=== PATIENT | male | born 1970 | race Caucasian/White ===

== ENCOUNTER 2023-11-09 17:25 | Observation (INO) ==
--- NOTE | 2023-11-09 18:19 | Emergency Department Note ---
Impression & Plan Acute pancreatitis ADMIT ED Provider Note HPI: History obtained from patient. The patient is a 52-year-old gentleman with history of an esophageal dysmotility disorder requiring an esophagectomy to be performed in 2014 at [facility], presents the emergency department with a chief complaint of mid abdominal pain. Patient states that over the past 2 weeks he has had intermittent episodes of sharp abdominal pain in his mid abdomen and upper abdomen. Patient states the episodes have been transient in nature. 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 Patient states this lasted about an hour and then seem to let up but he still does have pain on arrival here to the ED. Patient states that this pain was worse than the episodes he had had over the past 2 weeks. On arrival here to the ED the patient is hypertensive but otherwise hemodynamically stable, he appears to be in no acute distress on initial assessment. Patient declines analgesia. ROS: - Per HPI Differential Diagnosis: Gastritis, peptic ulcer disease, acute pancreatitis, acute cholecystitis, choledocholithiasis, viral gastroenteritis, abdominal aortic dissection, amongst other potential pathologies. *Outpatient medications and allergy history reviewed. PE: General: Alert HEENT: Normocephalic, trachea midline Eyes: Extraocular eye movement is intact, no scleral erythema Pulmonary: Clear to auscultation bilaterally, no wheezing Cardio: Regular rate and rhythm GI: Abdomen is soft to palpation, there is tenderness over the epigastric area to palpation without guarding or rigidity : No suprapubic tenderness MSK: No evidence of trauma or malformation of the extremities, no edema Skin: No evidence of rash Neuro: Alert, no focal deficits Psychiatric: Cooperative INDEPENDENT INTERPRETATIONS: critical care nurse specialist: (As interpreted by myself): - An order was placed for continuous cardiac monitoring - Patient was noted to be in sinus rhythm with a rate of 70 Interventions provided in ED: -IV fluid bolus, IV morphine, IV Zofran Medical Decision Making: IV was established and lab work obtained, patient was placed on airflight attendants supervisor. Lab work shows no leukocytosis, hemoglobin is normal, platelet count is normal, CMP does not show any critical findings however there is mild bilirubin elevation at 1.2, AST is elevated at 109, ALT at 76, alk phos of 180. No evidence of acute kidney injury, lipase does return elevated at 7776. CT imaging of the abdomen pelvis shows evidence of acute pancreatitis. There is also cholelithiasis with mild pericholecystic edema thought to possibly be secondary to the inflammation from the pancreas per radiology report. Also mild thickening of the duodenum thought to be secondary to pancreatic inflammation. There is no common bile duct dilatation. On my reassessment the patient remains stable, he was in agreement at this time to analgesia and therefore was ordered IV morphine and IV Zofran as well as more IV fluids. Patient is in agreement for admission. He does admit to daily alcohol use, I think this is likely the source of his acute pancreatitis. Case was discussed with the on-call midlevel provider for the hospitalist service, Cj Maxwell PA-C, and the patient was placed for admission in stable condition. Further discussion was held with the hospitalist, Dr. Robins, he requested an MRCP be ordered and therefore this order was placed. I suspect acute pancreatitis secondary to alcohol use as opposed to obstructive pathology at this time given lack of any biliary ductal dilatation on CT imaging and evidence of pancreatic inflammation with elevated lipase. Consultants/Discussions held with other healthcare providers: -Hospitalist, Dr. Robins Disposition discussion held by myself with: -Patient Diagnosis: 1. Acute pancreatitis 2. Acute abdominal pain 3. Elevated lipase 4. Transaminitis, acute, mild, AST greater than ALT Disposition: ADMIT Tristen Ceballos, DO Emergency Medicine Past Med/Surg History Social History Smoking Status: Never smoker Feels Safe at Home: Yes Allergies Allergies Allergy/AdvReac Type Severity Reaction Status Date / Time house dust Allergy Intermediate ITCHY Verified 11/09/23 18:42 EYES, SNEEZING, CONGESTION pollen extracts Allergy Intermediate ITCHY Verified 11/09/23 18:42 EYES, SNEEZING, CONGESTION Home Meds Home Medications Medication Instructions Recorded Confirmed T-Hero Suppliment 1 dose PO DAILY 11/09/23 11/09/23 cetirizine 10 mg tablet (Zyrtec) 10 mg PO DAILY 11/09/23 11/09/23 esomeprazole magnesium 40 mg 40 mg PO DAILY 11/09/23 11/09/23 capsule,delayed release (Nexium) sertraline 50 mg tablet (Zoloft) 75 mg PO DAILY 11/09/23 11/09/23 tofacitinib 10 mg tablet (Xeljanz) 10 mg PO DAILY 11/09/23 11/09/23 Results & Data (ED) Vital Signs Vital Signs - 24 hr 11/09/23 17:32 11/09/23 18:07 11/09/23 18:09 Temperature 36.2 C L Temperature Source Temporal Artery Scan Pulse Rate 69 65 Pulse Rate [Apical] 59 L Pulse Rhythm [Apical] Regular Pulse Strength [Apical] Normal Respiratory Rate 19 18 Respiratory Effort / Characteristics Non-Labored Spontaneous Respiratory Depth Normal Normal Respiratory Pattern Regular Blood Pressure 182/121 H Blood Pressure [Right Arm] 188/119 H Blood Pressure Mean 141 Blood Pressure Mean [Right Arm] 142 Blood Pressure Position [Right Arm] Sitting Pulse Oximetry 100 100 Oxygen Delivery Method Room Air Room Air Sepsis Recent Fever Within 48 Hours No Sepsis New/Unexplained Change in Mental Status N/A Sepsis Action Taken by Nursing No Action Required Laboratory Data 11/09/23 18:11 11/09/23 18:11 Lab Results 11/09/23 Range/Units 18:11 WBC 7.20 (4.8-10.8) K/ul RBC 5.62 (4.70-6.10) M/uL Hgb 15.2 (14.0-18.0) g/dl Hct 47.5 (42.0-52.0) % MCV 84.5 (80.0-100.0) fL MCH 27.0 (25.0-34.0) pg MCHC 32.0 (32.0-36.0) g/dL RDW Std Deviation 39.4 (36.4-46.3) fL RDW Coeff of Camilo 12.8 (11.5-14.5) % Plt Count 271 (130-400) K/uL MPV 10.2 (9.4-12.4) fL Immature Gran % (Auto) 0.4 % Neut % (Auto) 63.1 % Lymph % (Auto) 23.8 % Ross % (Auto) 6.4 % Eos % (Auto) 5.6 % Baso % (Auto) 0.7 % Neut # (Auto) 4.55 (1.40-6.50) K/uL Lymph # (Auto) 1.71 (1.20-3.40) K/uL Ross # (Auto) 0.46 (0.11-0.59) K/uL Eos # (Auto) 0.40 (0.00-0.50) K/uL Baso # (Auto) 0.05 (0.00-0.20) K/uL Immature Gran # (Auto) 0.03 (0.01-0.20) K/uL Sodium 138 (136-145) mmol/L Potassium 3.9 (3.5-5.1) mmol/L Chloride 104 (98-107) mmol/L Carbon Dioxide 28 (21-32) mmol/L Anion Gap 6 (3-11) BUN 11 (6-23) mg/dl Creatinine 0.99 (0.6-1.4) mg/dl Est Cr Clr Drug Dosing 95.5 ml/min Est GFR ( Amer) 102.5 ml/min Est GFR (Non-Af Amer) 88.4 ml/min BUN/Creatinine Ratio 11.1 (10-20) Glucose 103 H (70-99(Fasting)) mg/dl Calcium 8.9 (8.6-10.3) mg/dl Total Bilirubin 1.2 H (0.2-1.0) mg/dl AST 109 H (13-39) U/L ALT 76 H (7-52) U/L Alkaline Phosphatase 180 H (34-104) U/L Total Protein 7.1 (6.0-8.3) gm/dl Albumin 4.2 (3.4-5.0) gm/dl Globulin 2.9 (2.5-4.0) gm/dl Albumin/Globulin Ratio 1.4 (0.9-2) Lipase 7776 H (11-82) U/L Administered Medications Discontinued Medications Sodium Chloride (Nss) 1,000 mls @ 999 mls/hr IV .Q1H1M ONE Stop: 11/09/23 19:17 Last Infusion: 11/09/23 19:46 Dose: Infused Documented By: Admin: 11/09/23 18:36 Dose: 999 mls/hr Documented By: LORNE Ioversol (Optiray 320 100ml) 93 ml IV ONCE ONE Stop: 11/09/23 19:18 Last Admin: 11/09/23 19:18 Dose: 93 ml Documented By: EDK Imaging Data Radiologist's Impression: Abdomen/Pelvis CT 11/09/23 18:[address] WITH IV CONTRAST CT DOSE: 1190.8 mGy.cm HISTORY: mid abd pain TECHNIQUE: Multiaxial CT images of the abdomen and pelvis were performed following the use of intravenous contrast. A dose lowering technique was utilized adhering to the principles of ALARA. COMPARISON STUDY: None. FINDINGS: There are scattered punctate calcified granulomas in the few linear scarlike densities the right lung base. No pneumoperitoneum. No pneumatosis. No acute fractures. Suture material within the stomach with suggestion of a gastric pull-up. This is only partially imaged on this study. The liver, spleen, adrenal glands, and right kidney are unremarkable. There is a punctate stone within the left kidney. No ureteral stones. No hydronephrosis. The main portal vein is patent. Normal caliber abdominal aorta. There is a left circumaortic renal vein. Mild calcified plaque within the abdominal aorta. No retroperitoneal or pelvic lymphadenopathy. No pelvic free fluid. The bladder is unremarkable. Colonic diverticulosis. No evidence for acute diverticulitis. No dilated loops of bowel to suggest an obstruction. Mild thickening within the duodenum is likely reactive. Normal appendix. Edema within the head and body of the pancreas with peripancreatic fat stranding/fluid. This is consistent with acute pancreatitis. No pancreatic necrosis or loculated peripancreatic fluid collections at this time. Normal caliber common bile duct. There are few punctate gallstones. There is minimal pericholecystic edema. This could be reactive. IMPRESSION: 1. Acute pancreatitis as described above. 2. Cholelithiasis. There is mild pericholecystic edema. This could be reactive to the acute pancreatitis. 3. Mild thickening of the duodenum which is also likely reactive to the acute pancreatitis. 4. Left-sided nephrolithiasis. No hydronephrosis. 5. Additional findings as described above. ACT 112: Negative or not required by law. Electronically signed by: Cj Coley M.D. 11/09/2023 7:46 PM Discharge Plan Visit Data Chief Complaint: Abdominal Pain Stated Complaint: SHARP UPPER ABD PAIN, RT ABD/FLANK PAIN ED Provider: Tristen Ceballos Discharge Problem: Acute pancreatitis Forms Stand Alone Forms: Raising [employer] Prescriptions Prescriptions: No Action cetirizine [Zyrtec] 10 mg Tablet 10 mg PO DAILY esomeprazole magnesium [Nexium] 40 mg Capsule,Delayed Release(Dr/Ec) 40 mg PO DAILY sertraline [Zoloft] 50 mg Tablet 75 mg PO DAILY Xeljanz 10 mg Tablet 10 mg PO DAILY T-Hero Suppliment 1 dose PO DAILY Referrals Referrals: PCP,NO [Primary Care Provider] - Discharge Problem: Acute pancreatitis Qualifiers: Pancreatitis type: unspecified pancreatitis type Acute pancreatitis complication: unspecified Qualified Code(s): K85.90 - Acute pancreatitis without necrosis or infection, unspecified
[2023-11-09 18:32] LABS: Basophils # (auto) 0.05 K/uL (0.00-0.20); Basophils % (auto) 0.7 %; Eosinophils % (auto) 5.6 %; Hematocrit (blood only) 47.5 % (42.0-52.0); Hemoglobin 15.2 g/dl (14.0-18.0); Immature Granulocytes # (auto) 0.03 K/uL (0.01-0.20); Immature Granulocytes % (auto) 0.4 %; Lymphocytes # (auto) 1.71 K/uL (1.20-3.40); Lymphocytes % (auto) 23.8 %; Mean Corpuscular Volume 84.5 fL (80.0-100.0); Mean Platelet Volume 10.2 fL (9.4-12.4); Monocytes # (auto) 0.46 K/uL (0.11-0.59); Monocytes % (auto) 6.4 %; Neutrophils # (auto) 4.55 K/uL (1.40-6.50); Neutrophils % (auto) 63.1 %; Platelet Count 271 K/uL (130-400); RDW Coefficient of Variation 12.8 % (11.5-14.5); RDW Standard Deviation 39.4 fL (36.4-46.3); Red Blood Count 5.62 M/uL (4.70-6.10)
[2023-11-09] MEDS: SODIUM CHLORIDE 0.9% 1,000 ML IV ONE ×2 (18:36→21:10)
[2023-11-09 18:50] LABS: BUN Creatinine Ratio 11.1 (10-20); Calcium 8.9 mg/dl (8.6-10.3); Creatinine Clr Calc Pharmacy 95.5 ml/min; Est GFR (African American) 102.5 ml/min; Est GFR (Non-African American) 88.4 ml/min; Potassium 3.9 mmol/L (3.5-5.1)
[2023-11-09 18:54] LABS: Albumin Level 4.2 gm/dl (3.4-5.0); Bilirubin,Total 1.2 mg/dl (0.2-1.0); Total Protein 7.1 gm/dl (6.0-8.3)
[2023-11-09 18:55] LABS: Albumin Globulin Ratio 1.4 (0.9-2); Globulin 2.9 gm/dl (2.5-4.0)
[2023-11-09] MEDS: OPTIRAY 320 100ml IV ONE (19:18)
--- NOTE | 2023-11-09 19:48 | CT Scan Report ---
ABDOMEN AND PELVIS CT WITH IV CONTRAST CT DOSE: 1190.8 mGy.cm HISTORY: mid abd pain TECHNIQUE: Multiaxial CT images of the abdomen and pelvis were performed following the use of intrave nous contrast. A dose lowering technique was utilized adhering to the principles of ALARA. COMPARISON STUDY: None. FINDINGS: There are scattered punctate calcified granulomas in the few linear scarlike densities the right lung base. No pneumoperitoneum. No pneumatosis. No acute fractures. Suture material within the stomach with suggestion of a gastric pull-up. This is only partially imaged on this study. The liver, spleen, adrenal glands, and right kidney are unremarkable. There is a punctate stone within the left kidney. No ureteral stones. No hydronephrosis. The main portal vein is patent. Normal caliber abdomi nal aorta. There is a left circumaortic renal vein. Mild calcified plaque within the abdominal aorta. No retroperitoneal or pelvic lymphadenopathy. No pelvic free fluid. The bladder is unremarkable. Col onic diverticulosis. No evidence for acute diverticulitis. No dilated loops of bowel to suggest an ob struction. Mild thickening within the duodenum is likely reactive. Normal appendix. Edema within the head and body of the pancreas with peripancreatic fat stranding/fluid. This is consistent with acute pancreatitis. No pancreatic necrosis or loculated peripancreatic fluid collections at this time. Norm al caliber common bile duct. There are few punctate gallstones. There is minimal pericholecystic diana a. This could be reactive. IMPRESSION: 1. Acute pancreatitis as described above. 2. Cholelithiasis. There is mild pericholecystic edema. This could be reactive to the acute pancreati tis. 3. Mild thickening of the duodenum which is also likely reactive to the acute pancreatitis. 4. Left-sided nephrolithiasis. No hydronephrosis. 5. Additional findings as described above. ACT 112: Negative or not required by law. Electronically signed by: Cj Coley M.D. 11/09/2023 7:46 PM
--- NOTE | 2023-11-09 20:16 | History & Physical Report ---
Date of Service November 09, 2023 Assessment & Plan (1) Acute pancreatitis: Plan: Sharp epigastric pain radiating to the back over the past several weeks No leukocytosis; afebrile on arrival Lipase significantly elevated at 7776 Elevated transaminases A/P CT revealed acute pancreatitis, cholelithiasis, and mild pericholecystic edema (which may be reactive from the acute pancreatitis) MRCP ordered, pending Suspect pancreatitis in setting of frequent alcohol use NSS 1000 mL received in the ED Continue IVF resuscitation with LR at 150mL/hr x 4 Keep n.p.o. for now, then trial clear liquids advance to low-fat diet as tolerated Strict I&O monitoring Serum triglycerides ordered, pending Zofran as needed for nausea/vomiting Toradol as needed q6h for pain 13 Dilaudid q4h as needed for pain 4-10 A.m. CBC, CMP, Mag, lipase (2) Alcohol use: Plan: Patient endorses drinking 1-2 drinks of rum and coke daily Last drink on the evening of 11/07 Patient denies history of alcohol withdrawal or alcohol withdrawal seizures Medical alcohol level ordered, pending (3) H/O esophagectomy: Plan: Hx of achalasia requiring esophagectomy in 2014 with removal of 95% of the esophagus Continue Nexium or formulary equivalent (4) Esophageal dysmotility: Plan: Aspiration cautions (5) Depression: Plan: Continue sertraline Plan Disposition: Obs - Admit to [facility] Full Code N.p.o. for now VTE PPx: SCDs History of Present Illness Chief Complaint: Sharp intermittent epigastric pain Primary Care Provider: NO PCP Perico is a 52-year-old male with PMH of esophagectomy, dumping syndrome, depression, and GERD. He presented for sharp, intermittent epigastric pain and right flank pain x 2 weeks. Patient describes the pain as "gnawing", and reports that it radiates to his back. He rates it 10/10 at its worst, 5/10 at present. Patient has not been taking medications at home for the pain, but tried taking Tylenol yesterday after he drove up from his house near [facility], and the pain was exacerbated by vibrations in the car. Patient believes that putting pressure on his back alleviates the pain somewhat. No history of pancreatitis or gallbladder issues. No recent changes in diet. Patient did have a fever/chills a couple nights ago, but this resolved upon waking. History of achalasia recent diagnosis in 2010; however this got worse and required esophagectomy where 95% of the esophagus was moved because it stopped working. Patient took all of his regular morning medications today except for Zoloft; no recent change in medications. Patient denies smoking or tobacco use. He does endorse alcohol use; he drinks [place] Ryan and coke 12 drinks daily. Last drink was last night on 11/07. No history of seizures or alcohol withdrawal. No family history of pancreatitis. No history of abdominal surgeries or surgeries other than his esophagectomy. Patient is hypertensive at 188/119 at time of admission. ED course: NSS 1000 mL IV ROS: Patient endorses fever/chills/nightsweats (2 days ago; resolved), dry cough, sharp epigastric pain radiating to the back, diarrhea (secondary to dumping syndrome) Patient denies dizziness, lightheadedness, headaches, changes in vision, chest pain, left shoulder/jaw pain or pressure, chest palpitations, SOB, pleuritic CP, nausea, vomiting, blood in urine/stool, dysuria, burning with urination, change in urinary/bowel habits, saddle anesthesia, or N/T in the arms or legs. Allergies Allergy/AdvReac Type Severity Reaction Status Date / Time house dust Allergy Intermediate ITCHY Verified 11/09/23 18:42 EYES, SNEEZING, CONGESTION pollen extracts Allergy Intermediate ITCHY Verified 11/09/23 18:42 EYES, SNEEZING, CONGESTION Home Medications Medication Instructions Recorded Confirmed Type T-Hero Suppliment 1 dose PO DAILY 11/09/23 11/09/23 History cetirizine 10 mg tablet (Zyrtec) 10 mg PO DAILY 11/09/23 11/09/23 History esomeprazole magnesium 40 mg 40 mg PO DAILY 11/09/23 11/09/23 History capsule,delayed release (Nexium) sertraline 50 mg tablet (Zoloft) 75 mg PO DAILY 11/09/23 11/09/23 History tofacitinib 10 mg tablet (Xeljanz) 10 mg PO DAILY 11/09/23 11/09/23 History Past Med/Surg History Medical History (Updated 11/10/23 @ 16:02 by Shasta Ayers PA-C) Depression Surgical History (Updated 11/09/23 @ 20:58 by Cj Maxwell PA-C) H/O esophagectomy Social History Smoking Status: Never smoker Second Hand Exposure: No; Do You Dip or Chew Tobacco: No; Tobacco Cessation Education Requested by Patient: No Hx Alcohol Use: Yes Alcohol type: hard liquor Hx Substance Use: No Preferred Language: Latvian Communication Ability: Effective Buffing Machine Operator Semiautomatic Required: No Beliefs That Will Affect Care: None Current Living Situation: Spouse Feels Safe at Home: Yes Safety Concerns: Feels Safe At This Time Assistive Devices: Other Review of Systems Review of Systems: See HPI above Physical Exam Physical Exam: General: Mild physical distress secondary to back pain; pleasant affect; non- toxic appearing; well-nourished; cooperative; SpO2 100% on RA HEENT: normocephalic, atraumatic; no scleral icterus; PERRLA; moist mucus membrane; vision and hearing grossly intact Neck: supple; no lymphadenopathy; trachea midline Skin: warm, dry without signs of tenting; no cyanosis; no rashes, bruising, lesions, or erythema noted CV: chest wall NTP; RRR; S1/S2 normal; no murmurs/rubs/gallops; pulses intact and symmetric at radial, DP, and PT Lungs: no acute respiratory distress; symmetrical chest wall expansion; clear breath sounds across all lung hernandez w/o adventitious sounds; no wheezing ABD: Soft, NTP; BS present; no rebound/guarding; no distention; no rashes, bruising, or signs of active bleeding on the abdomen flanks or back; negative CVA tenderness MSK: no tics or fasciculations; no edema noted in the LEs b/l, nonerythematous Neuro: A&Ox3; normal mood and affect; fluent speech; no focal deficits; sensation grossly intact in the LEs b/l Results & Data Results & Data Vital Signs (Past 12 Hours) Vital Signs Temp Pulse Pulse Resp BP BP Pulse Ox 11/09/23 18:09 65 11/09/23 18:07 59 L 18 188/119 H 100 11/09/23 17:32 36.2 C L 69 19 182/121 H 100 O2 Del Method 11/09/23 18:09 11/09/23 18:07 Room Air 11/09/23 17:32 Room Air Laboratory Results Abnormal lab results 11/09/23 Range/Units 18:11 Glucose 103 H (70-99(Fasting)) mg/dl Total Bilirubin 1.2 H (0.2-1.0) mg/dl AST 109 H (13-39) U/L ALT 76 H (7-52) U/L Alkaline Phosphatase 180 H (34-104) U/L Lipase 7776 H (11-82) U/L Diagnostic Findings Abdomen/Pelvis CT 11/09/23 18:[address] WITH IV CONTRAST CT DOSE: 1190.8 mGy.cm HISTORY: mid abd pain TECHNIQUE: Multiaxial CT images of the abdomen and pelvis were performed following the use of intravenous contrast. A dose lowering technique was utilized adhering to the principles of ALARA. COMPARISON STUDY: None. FINDINGS: There are scattered punctate calcified granulomas in the few linear scarlike densities the right lung base. No pneumoperitoneum. No pneumatosis. No acute fractures. Suture material within the stomach with suggestion of a gastric pull-up. This is only partially imaged on this study. The liver, spleen, adrenal glands, and right kidney are unremarkable. There is a punctate stone within the left kidney. No ureteral stones. No hydronephrosis. The main portal vein is patent. Normal caliber abdominal aorta. There is a left circumaortic renal vein. Mild calcified plaque within the abdominal aorta. No retroperitoneal or pelvic lymphadenopathy. No pelvic free fluid. The bladder is unremarkable. Colonic diverticulosis. No evidence for acute diverticulitis. No dilated loops of bowel to suggest an obstruction. Mild thickening within the duodenum is likely reactive. Normal appendix. Edema within the head and body of the pancreas with peripancreatic fat stranding/fluid. This is consistent with acute pancreatitis. No pancreatic necrosis or loculated peripancreatic fluid collections at this time. Normal caliber common bile duct. There are few punctate gallstones. There is minimal pericholecystic edema. This could be reactive. IMPRESSION: 1. Acute pancreatitis as described above. 2. Cholelithiasis. There is mild pericholecystic edema. This could be reactive to the acute pancreatitis. 3. Mild thickening of the duodenum which is also likely reactive to the acute pancreatitis. 4. Left-sided nephrolithiasis. No hydronephrosis. 5. Additional findings as described above. ACT 112: Negative or not required by law. Electronically signed by: Cj Coley M.D. 11/09/2023 7:46 PM Code Status & VTE Plan Code Status Full code VTE Prophylaxis Plan VTE Prophylaxis will be ordered: Yes Supervising Physician Co-Signing Physician Notes Attending addendum: I have physically seen this patient, have supervised the JUANA's activities, and agree with the H&P unless as otherwise noted. Assessment and Plan: Acute pancreatitis/transaminitis- NPO Lipase 7776 upon admission, and will follow serially AST 109, ALT 76 on admission, follow serially CT suggest acute pancreatitis, cholelithiasis and mild pericholecystic edema MRCP ordered, with no sign of choledocholithiasis Status post 2 L normal saline in the ED Continue LR rehydration 150 mL/h Toradol 15 mg IV every 6 hours as needed for mild to moderate pain or fever Ceftriaxone 2 g IV daily Consult general surgery Alcohol use- Patient reports daily use of 1-2 drinks Add medical alcohol level to ED labs Monitor for need for MING as protocol History of esophagectomy secondary to achalasia/esophageal dysmotility- Change Nexium to pantoprazole 40 mg IV daily PG Care Time/CCT Total # of Minutes Spent Total Time Spent with Patient: Total time spent is greater than 50% in coordination of care (as documented) at patient's floor/unit and/or counseling patient: [place] [address] INT INP/OBS CARE 2/55MIN Patient Type New Medical Decision Making Moderate Complexity Diagnoses Acute pancreatitis K85.90 Alcohol use Z78.9 H/O esophagectomy Z98.890; Z90.49 Esophageal dysmotility K22.4 Depression F32.A
[2023-11-09] MEDS: ACETAMINOPHEN 1,000 MG/100 ML VIAL IV PRN (21:10)
[2023-11-09] MEDS: ONDANSETRON INJ 2 MG/ML 2 ML VIAL IV STA (21:10)
[2023-11-09] MEDS: MoRPHine SULFATE 4 MG/ML 1 ML CARP\\VIAL IV STA (21:20)
[2023-11-09 21:32] LABS: Appearance Urine Clear (Clear); Bilirubin Urine Negative (Negative); Blood Urine Negative (Negative); Color Urine Yellow; Glucose Urine UA Negative (Negative); Ketones Urine Negative (Negative); Leukocyte Esterase Urine Negative (Negative); Nitrite Urine Negative (Negative); Protein Urine Negative (Negative); Specific Gravity Urine > 1.045 (1.000-1.030); Urobilinogen Urine Negative (Negative)
[2023-11-09] MEDS: LACTATED RINGER'S 1,000 ML IV SCH (22:15)
[2023-11-09] MEDS ORDERED: MELATONIN 3 MG TAB PO PRN (23:54)
[2023-11-09] MEDS ORDERED: ONDANSETRON INJ 2 MG/ML 2 ML VIAL IV PRN (23:54)
[2023-11-09] MEDS ORDERED: HYDROmorphone INJ 0.5 MG/0.5 ML SYR IV PRN (23:54)
[2023-11-09] MEDS ORDERED: KETOROLAC TROMETHAMINE 15 MG/ML VIAL IV PRN (23:54)
--- NOTE | 2023-11-10 01:41 | Magnetic Resonance Report ---
Exam(s): MRI MRCP EXAM: MR Abdomen Without Intravenous Contrast, MRCP Protocol CLINICAL HISTORY: Reason for exam: Transaminitis. TECHNIQUE: Multiplanar magnetic resonance images of the abdomen without intravenous contrast using MRCP protocol. COMPARISON: CT examination 11/09/23 FINDINGS: Bile ducts: Unremarkable. No stones. No ductal dilation. Gallbladder: Cholelithiasis and gallbladder sludge demonstrated. Gallbladder is partially contracted. There is no direct evidence for acute cholecystitis. Liver: Unremarkable. Pancreas: Peripancreatic edema again demonstrated, characteristic for acute pancreatitis. No evidence for pancreatic necrosis. No drainable fluid collection is visualized. No ductal dilation. Spleen: Unremarkable. No splenomegaly. Adrenals: Unremarkable. No mass. Kidneys and ureters: Unremarkable. No hydronephrosis. Stomach and bowel: Unremarkable. No obstruction. IMPRESSION: 1. Peripancreatic edema again demonstrated, characteristic for acute pancreatitis. No evidence for pancreatic necrosis. No drainable fluid collection is visualized. 2. Cholelithiasis and gallbladder sludge demonstrated. Gallbladder is partially contracted. There is no direct evidence for acute cholecystitis. 3. No evidence for choledocholithiasis. Electronically signed by: Kojo Walter MD 11/10/23 01:40 AM
[2023-11-10] MEDS: HYDROmorphone INJ 1 MG/ML SYRINGE IV PRN (05:31)
--- NOTE | 2023-11-10 07:04 | Hospitalist Progress Note ---
Date of Service November 10, 2023 Assessment & Plan (1) Alcohol use: (2) Esophageal dysmotility: (3) Depression: (4) H/O esophagectomy: (5) Acute pancreatitis: Plan 52-year-old male with PMH of esophagectomy, dumping syndrome, depression, and GERD admitted due to pancreatitis #Acute pancreatitis: Suspect pancreatitis in setting of frequent alcohol use Sharp epigastric pain radiating to the back over the past several weeks No leukocytosis; afebrile on arrival Lipase significantly elevated at 7776 but now trending downwards. Last Lipase was 722. Elevated transaminases trending downwards. AST: 109 --> 45; ALT: 76-->50; ALP: 180-->131 A/P CT revealed acute pancreatitis, cholelithiasis, and mild pericholecystic edema (which may be reactive from the acute pancreatitis) Continue IVF resuscitation with LR at 150mL/hr x 4 On clear liquids advancing to low-fat diet as tolerated Serum triglycerides 186 Zofran as needed for nausea/vomiting Pain medications prn AM: CBC, CMP, Lipase Surgery consult appreciated for discussion regarding whether patient may benefit from a cholecystectomy to prevent future bouts of acute pancreatitis #Alcohol use: Patient endorses drinking 1-2 drinks of rum and coke daily Last drink on the evening of 11/07 Patient denies history of alcohol withdrawal or alcohol withdrawal seizures # H/O esophagectomy: Hx of achalasia requiring esophagectomy in 2015 with removal of 95% of the esophagus Continue Nexium or formulary equivalent # Esophageal dysmotility: Aspiration cautions #Depression: Continue sertraline Plan Disposition:Med- Surgery Full Code VTE PPx: SCDs Admission and Anticipated Discharge Date Admission Date: November 09, 2023 Supervising Physician Co-Signing Physician Notes Attending Physician Supervision Note: I independently interviewed and examined the patient and verified the mark history and physical, reviewed labs and image studies and agree with findings and care plan noted above. Abd pain resolved. no fever No distress. RRR, CTA, abd - soft NT/ND. BS+ Acute pancreatitis - concern of gall stone pancreatitis. symptoms and lipase improved. MRCP negative for choledocholithiasis. He would like to get further work up and evaluation done in his home town in [place]. -continue to monitor. clear liquid diet. if improves in am - d/c home to f/u locally. -will need strict instructions for low fat diet in the meantime. rest as above Carolyn River is a 52 y/o male with a PMH significant for achalasia s/p esophagectomy 2015, dumping syndrome, depression, and GERD. He presented to the ED yesterday after an episode of acute onset epigastric abdominal pain. He notes that for the last 2 weeks, he has been experiencing on/off episodes of abdominal pain. Has tried taking OTC Antacids without any relief. In addition, he notes having mid- lower back pain that has been on and off for the past year. Laying on a tennis ball/applying pressure/having a cushion to support his mid-lower back seems to help provide relief of his back and abdominal pain. He reports that yesterday's episode was much more severe in nature. He notes t hat he was driving to [place] from [facility] with his and suddenly experienced pain in the mid-epigastric region. The pain was sharp in nature, 10/10 in severity, and radiated to his right flank and in between his shoulder blades. He tried taking Tylenol which he notes helped provide some relief. His pain seemed to be exacerbated by vibrations in the car. He reports no history of pancreatitis or gallbladder issues. There has been no recent changes to his diet. He does note feeling feverish a few nights ago with chills and cold sweats but symptoms resolved upon waking. History of achalasia recent diagnosis in 2010; however this got worse and required esophagectomy where 95% of the esophagus was moved because it stopped working. He does endorse alcohol use; he drinks [place] Ryan and coke 12 drinks daily. Last drink was last night on 11/07. No history of seizures or alcohol withdrawal. No family history of pancreatitis. No history of abdominal surgeries or surgeries other than his esophagectomy. Today, he reports that he feels much improved. He notes that the abdominal pain is generally resolved. He reports no concerns or changes overnight. He states that he is considering cutting back on his alcohol intake and may abstain from drinking for a bit. Review of Systems Review of Systems: Negative except those stated in the HPI. Physical Exam Constitutional: Lying upright in bed. Not in any acute distress. Respiratory: Lungs were clear to auscultation bilaterally. Cardiovascular: Regular rate and rhythm. Noraml S1/S2 sounds present. No murmurs, rubs or gallops. Gastrointestinal (Abdomen): Soft and nondistended abdomen. Normoactive bowel sounds in all 4 quadrants. No tenderness upon palpation. Results & Data Results & Data Vital Signs (Past 12 Hours) Vital Signs Temp Pulse Pulse Pulse Resp BP BP 11/10/23 01:29 75 166/105 H 11/09/23 23:55 36.4 C L 57 L 16 174/111 H 11/09/23 22:50 61 20 158/112 H 11/09/23 21:55 59 L 11/09/23 21:10 56 L 15 168/110 H 11/09/23 21:00 55 L 14 168/110 H Pulse Ox O2 Del Method 11/10/23 01:29 11/09/23 23:55 98 Room Air 11/09/23 22:50 99 Room Air 11/09/23 21:55 11/09/23 21:10 100 11/09/23 21:00 99 Resident Activity Tracking Resident Involvement: Resident Care Provided Care Provided: Adult Hospital Medicine (5) Acute pancreatitis Acute pancreatitis complication: unspecified Pancreatitis type: unspecified pancreatitis type Qualified Code(s): K85.90 - Acute pancreatitis without necrosis or infection, unspecified
[2023-11-10] MEDS ORDERED: LORazepam 1 MG in SYRINGE 0.5 ML IV PRN (07:09)
--- NOTE | 2023-11-10 07:09 | XRay Report ---
XR chest 1V portable HISTORY: Epigastric pain; check for mediastinal widening COMPARISON: None. FINDINGS: No pneumothorax. No pleural effusions. The heart is normal in size. No evidence for mediast inal widening. No acute fractures. Small linear scarlike densities within the right lung. Otherwise, lungs are clear. IMPRESSION: No acute process. ACT 112: Negative or not required by law. Electronically signed by: Cj Coley M.D. 11/10/2023 7:07 AM
[2023-11-10 07:24] LABS: Basophils # (auto) 0.03 K/uL (0.00-0.20); Basophils % (auto) 0.6 %; Eosinophils # (auto) 0.34 K/uL (0.00-0.50); Eosinophils % (auto) 6.6 %; Hematocrit (blood only) 42.1 % (42.0-52.0); Hemoglobin 13.8 g/dl (14.0-18.0); Immature Granulocytes # (auto) 0.01 K/uL (0.01-0.20); Immature Granulocytes % (auto) 0.2 %; Lymphocytes # (auto) 1.05 K/uL (1.20-3.40); Lymphocytes % (auto) 20.4 %; Mean Corpuscular Hemoglobin 27.4 pg (25.0-34.0); Mean Corpuscular Hgb Conc 32.8 g/dL (32.0-36.0); Mean Corpuscular Volume 83.5 fL (80.0-100.0); Mean Platelet Volume 10.3 fL (9.4-12.4); Monocytes % (auto) 5.8 %; Neutrophils # (auto) 3.41 K/uL (1.40-6.50); Neutrophils % (auto) 66.4 %; Platelet Count 222 K/uL (130-400); RDW Coefficient of Variation 12.8 % (11.5-14.5); RDW Standard Deviation 38.6 fL (36.4-46.3); Red Blood Count 5.04 M/uL (4.70-6.10); White Blood Count 5.14 K/ul (4.8-10.8)
[2023-11-10] MEDS: PANTOprazole 40 MG TAB PO SCH (07:42)
[2023-11-10] MEDS: THIAMINE HCL 100 MG TAB PO SCH (07:43)
[2023-11-10] MEDS: FOLIC ACID 1 MG TAB PO SCH (07:43)
[2023-11-10] MEDS: CETIRIZINE HCL 10 MG TABLET PO SCH (07:43)
[2023-11-10] MEDS: SERTRALINE HCL 50 MG TABLET PO SCH (07:43)
[2023-11-10] MEDS ORDERED: HYDROmorphone INJ 0.5 MG/0.5 ML SYR IV PRN (07:49)
[2023-11-10 07:50] LABS: BUN Creatinine Ratio 10.3 (10-20); Calcium 7.6 mg/dl (8.6-10.3); Creatinine Clr Calc Pharmacy 138.4 ml/min; Est GFR (African American) 129.1 ml/min; Est GFR (Non-African American) 111.4 ml/min; Potassium 3.9 mmol/L (3.5-5.1)
[2023-11-10 08:05] LABS: Albumin Globulin Ratio 1.5 (0.9-2); Albumin Level 3.4 gm/dl (3.4-5.0); Bilirubin,Total 0.6 mg/dl (0.2-1.0); Globulin 2.3 gm/dl (2.5-4.0); Total Protein 5.7 gm/dl (6.0-8.3)
--- NOTE | 2023-11-10 16:06 | Surgery Consultation ---
<Statement entered by Indra Guillen MD - 11/10/23 22:31> Patient seen and examined. Agree with above plan. Date of Consultation November 10, 2023 Assessment & Plan (1) Acute pancreatitis: (2) Alcohol use: (3) Gallstones: 52 year-old male with 2 week history of intermittent epigastric/upper abdominal pain with episode of severe epigastric pain which prompted ER visit. Labs and imaging consistent with acute pancreatitis. MRCP negative for choledocholithiasis and t.bili an lfts trending down (slightly elevated initially). Etiology of pancreatitis could be either Alcoholic pancreatitis vs Gallstone pancreatitis. No leukocytosis. Discussed indication for cholecystectomy based on acute pancreatitis and having gallstones. Discussed with patient that we need to allow pancreatitis to resolve prior to surgical intervention. If labs start trending upward he would need transfer for ERCP capabilities. He is from [place] so if pancreatitis improves and he clinically improves could consider outpatient cholecystectomy back at home. Will follow along. Recommend following labs to ensure lfts, and alk phos, and lipase trend to normal. IV fluids, pain management as needed, and clear liquid diet. Dr. Guillen has seen and examined patient. History of Present Illness Reason for Consultation: Acute gallstone pancreatitis Requesting Physician: Tiffanie Foley MD Attending Physician: Tiffanie Foley MD History of Present Illness Perico is a 52 year-old male with history of esophageal dysmotility s/p esophagectomy and alcohol use who presented to ED with complaint of intermittent epigastric/upper abdominal pain for past 2 weeks with increased severity yesterday which prompted ER visit. Denies of any associated fever, chills, nausea, vomiting. History of Achalasia with esophagectomy. No history of gallbladder problems or pancreatitis. Does drink 1-2 rum and cokes daily. No changes in drinking or recent binge drinking. He had an MRCP which showed pancreatitis and no evidence of choledocholithiasis. He has no leukocytosis and no evidence of acute cholecystitis on imaging. His t. bili was elevated at 1.2 , AST 109, ALT 76, ALK phos 180 and lipase was 7776. Labs show improvement today with t. bili at 0.6, LFTS trending down and lipase was 722. Allergies Allergy/AdvReac Type Severity Reaction Status Date / Time house dust Allergy Intermediate ITCHY Verified 11/09/23 18:42 EYES, SNEEZING, CONGESTION pollen extracts Allergy Intermediate ITCHY Verified 11/09/23 18:42 EYES, SNEEZING, CONGESTION Home Medications Medication Instructions Recorded Confirmed Type T-Hero Suppliment 1 dose PO DAILY 11/09/23 11/09/23 History cetirizine 10 mg tablet (Zyrtec) 10 mg PO DAILY 11/09/23 11/09/23 History esomeprazole magnesium 40 mg 40 mg PO DAILY 11/09/23 11/09/23 History capsule,delayed release (Nexium) sertraline 50 mg tablet (Zoloft) 75 mg PO DAILY 11/09/23 11/09/23 History tofacitinib 10 mg tablet (Xeljanz) 10 mg PO DAILY 11/09/23 11/09/23 History Patient History Medical History (Updated 11/10/23 @ 16:02 by Shasta Ayers PA-C) Depression Surgical History (Updated 11/09/23 @ 20:58 by Cj Maxwell PA-C) H/O esophagectomy Social History Smoking Status: Never smoker Second Hand Exposure: No; Do You Dip or Chew Tobacco: No; Tobacco Cessation Education Requested by Patient: No Hx Alcohol Use: Yes Alcohol type: hard liquor Hx Substance Use: No Preferred Language: Icelandic Communication Ability: Effective Central Aisle Cashier Required: No Beliefs That Will Affect Care: None Current Living Situation: Spouse Feels Safe at Home: Yes Safety Concerns: Feels Safe At This Time Assistive Devices: Other Physical Exam Constitutional: WD/WN, vitals as above cooperative and comfortable; no acute distress, not ill appearing and not in distress Respiratory: normal respiratory effort; no respiratory distress, no labored breathing and no retractions Gastrointestinal (Abdomen): Inspection/Auscultation: abdomen normal to inspection and + abdominal surgical scar (upper midline laparoscopy scar from esophagectomy); abdomen not distended Percussion/Palpation: + abdomen tender (RUQ and epigastrium) and abdomen soft; no guarding, abdomen not rigid and abdomen not firm Skin: no rashes, warm and dry no jaundice Psychiatric: A+Ox3, euthymic affect Results & Data Vital Signs (Past 12 Hours) Vital Signs Temp Pulse Resp BP BP Pulse Ox O2 Del Method 11/10/23 15:10 36.5 C 55 L 16 152/104 H 98 Room Air 11/10/23 07:32 36.6 C 70 16 152/93 H 96 Room Air Laboratory Results 11/10/23 11/09/23 11/09/23 Range/Units 06:33 21:21 21:06 WBC 5.14 (4.8-10.8) K/ul RBC 5.04 (4.70-6.10) M/uL Hgb 13.8 L (14.0-18.0) g/dl Hct 42.1 (42.0-52.0) % MCV 83.5 (80.0-100.0) fL MCH 27.4 (25.0-34.0) pg MCHC 32.8 (32.0-36.0) g/dL RDW Std Deviation 38.6 (36.4-46.3) fL RDW Coeff of Camilo 12.8 (11.5-14.5) % Plt Count 222 (130-400) K/uL MPV 10.3 (9.4-12.4) fL Immature Gran % (Auto) 0.2 % Neut % (Auto) 66.4 % Lymph % (Auto) 20.4 % [place] % (Auto) 5.8 % Eos % (Auto) 6.6 % Baso % (Auto) 0.6 % Neut # (Auto) 3.41 (1.40-6.50) K/uL Lymph # (Auto) 1.05 L (1.20-3.40) K/uL [place] # (Auto) 0.30 (0.11-0.59) K/uL Eos # (Auto) 0.34 (0.00-0.50) K/uL Baso # (Auto) 0.03 (0.00-0.20) K/uL Immature Gran # (Auto) 0.01 (0.01-0.20) K/uL Sodium 138 (136-145) mmol/L Potassium 3.9 (3.5-5.1) mmol/L Chloride 109 H (98-107) mmol/L Carbon Dioxide 25 (21-32) mmol/L Anion Gap 4 (3-11) BUN 7 (6-23) mg/dl Creatinine 0.68 D (0.6-1.4) mg/dl Est Cr Clr Drug Dosing 138.4 ml/min Est GFR ( Amer) 129.1 ml/min Est GFR (Non-Af Amer) 111.4 ml/min BUN/Creatinine Ratio 10.3 (10-20) Glucose 94 (70-99(Fasting)) mg/dl Calcium 7.6 L (8.6-10.3) mg/dl Total Bilirubin 0.6 D (0.2-1.0) mg/dl AST 45 H (13-39) U/L ALT 50 (7-52) U/L Alkaline Phosphatase 131 H (34-104) U/L Total Protein 5.7 L (6.0-8.3) gm/dl Albumin 3.4 (3.4-5.0) gm/dl Globulin 2.3 L (2.5-4.0) gm/dl Albumin/Globulin Ratio 1.5 (0.9-2) Triglycerides (0-150) mg/dl Lipase 722 H (11-82) U/L Urine Color Yellow Urine Appearance Clear (Clear) Urine pH 6.0 (4.5-7.5) Ur Specific [place] > 1.045 H (1.000-1.030) Urine Protein Negative (Negative) Urine Glucose (UA) Negative (Negative) Urine Ketones Negative (Negative) Urine Blood Negative (Negative) Urine Nitrite Negative (Negative) Urine Bilirubin Negative (Negative) Urine Urobilinogen Negative (Negative) Ur Leukocyte Esterase Negative (Negative) Ethyl Alcohol mg/dL < 10.0 (<10.0) mg/dl 11/09/23 Range/Units 18:11 WBC 7.20 (4.8-10.8) K/ul RBC 5.62 (4.70-6.10) M/uL Hgb 15.2 (14.0-18.0) g/dl Hct 47.5 (42.0-52.0) % MCV 84.5 (80.0-100.0) fL MCH 27.0 (25.0-34.0) pg MCHC 32.0 (32.0-36.0) g/dL RDW Std Deviation 39.4 (36.4-46.3) fL RDW Coeff of Camilo 12.8 (11.5-14.5) % Plt Count 271 (130-400) K/uL MPV 10.2 (9.4-12.4) fL Immature Gran % (Auto) 0.4 % Neut % (Auto) 63.1 % Lymph % (Auto) 23.8 % [place] % (Auto) 6.4 % Eos % (Auto) 5.6 % Baso % (Auto) 0.7 % Neut # (Auto) 4.55 (1.40-6.50) K/uL Lymph # (Auto) 1.71 (1.20-3.40) K/uL [place] # (Auto) 0.46 (0.11-0.59) K/uL Eos # (Auto) 0.40 (0.00-0.50) K/uL Baso # (Auto) 0.05 (0.00-0.20) K/uL Immature Gran # (Auto) 0.03 (0.01-0.20) K/uL Sodium 138 (136-145) mmol/L Potassium 3.9 (3.5-5.1) mmol/L Chloride 104 (98-107) mmol/L Carbon Dioxide 28 (21-32) mmol/L Anion Gap 6 (3-11) BUN 11 (6-23) mg/dl Creatinine 0.99 (0.6-1.4) mg/dl Est Cr Clr Drug Dosing 95.5 ml/min Est GFR ( Amer) 102.5 ml/min Est GFR (Non-Af Amer) 88.4 ml/min BUN/Creatinine Ratio 11.1 (10-20) Glucose 103 H (70-99(Fasting)) mg/dl Calcium 8.9 (8.6-10.3) mg/dl Total Bilirubin 1.2 H (0.2-1.0) mg/dl AST 109 H (13-39) U/L ALT 76 H (7-52) U/L Alkaline Phosphatase 180 H (34-104) U/L Total Protein 7.1 (6.0-8.3) gm/dl Albumin 4.2 (3.4-5.0) gm/dl Globulin 2.9 (2.5-4.0) gm/dl Albumin/Globulin Ratio 1.4 (0.9-2) Triglycerides 186 H (0-150) mg/dl Lipase 7776 H (11-82) U/L Urine Color Urine Appearance (Clear) Urine pH (4.5-7.5) Ur Specific [place] (1.000-1.030) Urine Protein (Negative) Urine Glucose (UA) (Negative) Urine Ketones (Negative) Urine Blood (Negative) Urine Nitrite (Negative) Urine Bilirubin (Negative) Urine Urobilinogen (Negative) Ur Leukocyte Esterase (Negative) Ethyl Alcohol mg/dL (<10.0) mg/dl Diagnostic Findings ABDOMEN AND PELVIS CT WITH IV CONTRAST CT DOSE: 1190.8 mGy.cm HISTORY: mid abd pain TECHNIQUE: Multiaxial CT images of the abdomen and pelvis were performed following the use of intravenous contrast. A dose lowering technique was utilized adhering to the principles of ALARA. COMPARISON STUDY: None. FINDINGS: There are scattered punctate calcified granulomas in the few linear scarlike densities the right lung base. No pneumoperitoneum. No pneumatosis. No acute fractures. Suture material within the stomach with suggestion of a gastric pull-up. This is only partially imaged on this study. The liver, spleen, adrenal glands, and right kidney are unremarkable. There is a punctate stone within the left kidney. No ureteral stones. No hydronephrosis. The main portal vein is patent. Normal caliber abdominal aorta. There is a left circumaortic renal vein. Mild calcified plaque within the abdominal aorta. No retroperitoneal or pelvic lymphadenopathy. No pelvic free fluid. The bladder is unremarkable. Colonic diverticulosis. No evidence for acute diverticulitis. No dilated loops of bowel to suggest an obstruction. Mild thickening within the duodenum is likely reactive. Normal appendix. Edema within the head and body of the pancreas with peripancreatic fat stranding/fluid. This is consistent with acute pancreatitis. No pancreatic necrosis or loculated peripancreatic fluid collections at this time. Normal caliber common bile duct. There are few punctate gallstones. There is minimal pericholecystic edema. This could be reactive. IMPRESSION: 1. Acute pancreatitis as described above. 2. Cholelithiasis. There is mild pericholecystic edema. This could be reactive to the acute pancreatitis. 3. Mild thickening of the duodenum which is also likely reactive to the acute pancreatitis. 4. Left-sided nephrolithiasis. No hydronephrosis. 5. Additional findings as described above. Exam(s): MRI MRCP EXAM: MR Abdomen Without Intravenous Contrast, MRCP Protocol CLINICAL HISTORY: Reason for exam: Transaminitis. TECHNIQUE: Multiplanar magnetic resonance images of the abdomen without intravenous contrast using MRCP protocol. COMPARISON: CT examination 11/09/23 FINDINGS: Bile ducts: Unremarkable. No stones. No ductal dilation. Gallbladder: Cholelithiasis and gallbladder sludge demonstrated. Gallbladder is partially contracted. There is no direct evidence for acute cholecystitis. Liver: Unremarkable. Pancreas: Peripancreatic edema again demonstrated, characteristic for acute pancreatitis. No evidence for pancreatic necrosis. No drainable fluid collection is visualized. No ductal dilation. Spleen: Unremarkable. No splenomegaly. Adrenals: Unremarkable. No mass. Kidneys and ureters: Unremarkable. No hydronephrosis. Stomach and bowel: Unremarkable. No obstruction. IMPRESSION: 1. Peripancreatic edema again demonstrated, characteristic for acute pancreatitis. No evidence for pancreatic necrosis. No drainable fluid collection is visualized. 2. Cholelithiasis and gallbladder sludge demonstrated. Gallbladder is partially contracted. There is no direct evidence for acute cholecystitis. 3. No evidence for choledocholithiasis. (1) Acute pancreatitis Acute pancreatitis complication: unspecified Pancreatitis type: unspecified pancreatitis type Qualified Code(s): K85.90 - Acute pancreatitis without necrosis or infection, unspecified
[2023-11-10] MEDS: KETOROLAC TROMETHAMINE 15 MG/ML VIAL IV PRN (21:16)
--- NOTE | 2023-11-11 07:17 | Hospitalist Progress Note ---
Date of Service November 11, 2023 Assessment & Plan (1) Alcohol use: (2) Esophageal dysmotility: (3) Depression: (4) H/O esophagectomy: (5) Acute pancreatitis: Plan 52-year-old male with PMH of esophagectomy, dumping syndrome, depression, and GERD admitted due to pancreatitis #Acute pancreatitis: Suspect pancreatitis in setting of frequent alcohol use Sharp epigastric pain radiating to the back over the past several weeks No leukocytosis; afebrile on arrival Lipase significantly elevated at 7776 but now trending downwards. Last Lipase was 722. Elevated transaminases trending downwards. AST: 109 --> 45; ALT: 76-->50; ALP: 180-->131 A/P CT revealed acute pancreatitis, cholelithiasis, and mild pericholecystic edema (which may be reactive from the acute pancreatitis) Continue IVF resuscitation with LR at 150mL/hr x 4 On clear liquids advancing to low-fat diet as tolerated Serum triglycerides 186 Zofran as needed for nausea/vomiting Pain medications prn AM: CBC, CMP, Lipase Surgery consult appreciated for discussion regarding whether patient may benefit from a cholecystectomy to prevent future bouts of acute pancreatitis #Alcohol use: Patient endorses drinking 1-2 drinks of rum and coke daily Last drink on the evening of 11/07 Patient denies history of alcohol withdrawal or alcohol withdrawal seizures # H/O esophagectomy: Hx of achalasia requiring esophagectomy in 2015 with removal of 95% of the esophagus Continue Nexium or formulary equivalent # Esophageal dysmotility: Aspiration cautions #Depression: Continue sertraline Plan Disposition:Med- Surgery Full Code VTE PPx: SCDs Admission and Anticipated Discharge Date Admission Date: November 09, 2023 Review of Systems Review of Systems: Negative except those stated in the HPI. Results & Data Results & Data Vital Signs (Past 12 Hours) Vital Signs Temp Pulse Resp BP Pulse Ox O2 Del Method 11/10/23 20:13 36.8 C 66 16 160/111 H 97 Room Air (5) Acute pancreatitis Acute pancreatitis complication: unspecified Pancreatitis type: unspecified pancreatitis type Qualified Code(s): K85.90 - Acute pancreatitis without necrosis or infection, unspecified
[2023-11-11 07:25] LABS: Basophils # (auto) 0.04 K/uL (0.00-0.20); Basophils % (auto) 0.7 %; Eosinophils # (auto) 0.38 K/uL (0.00-0.50); Hematocrit (blood only) 43.5 % (42.0-52.0); Hemoglobin 14.3 g/dl (14.0-18.0); Immature Granulocytes # (auto) 0.02 K/uL (0.01-0.20); Immature Granulocytes % (auto) 0.4 %; Lymphocytes # (auto) 1.31 K/uL (1.20-3.40); Lymphocytes % (auto) 24.3 %; Mean Corpuscular Hemoglobin 27.4 pg (25.0-34.0); Mean Corpuscular Hgb Conc 32.9 g/dL (32.0-36.0); Mean Corpuscular Volume 83.5 fL (80.0-100.0); Mean Platelet Volume 10.5 fL (9.4-12.4); Monocytes # (auto) 0.28 K/uL (0.11-0.59); Monocytes % (auto) 5.2 %; Neutrophils # (auto) 3.37 K/uL (1.40-6.50); Neutrophils % (auto) 62.4 %; Platelet Count 228 K/uL (130-400); RDW Coefficient of Variation 12.8 % (11.5-14.5); RDW Standard Deviation 38.5 fL (36.4-46.3); Red Blood Count 5.21 M/uL (4.70-6.10)
[2023-11-11 07:45] LABS: Albumin Globulin Ratio 1.5 (0.9-2); Albumin Level 3.5 gm/dl (3.4-5.0); BUN Creatinine Ratio 8.2 (10-20); Bilirubin,Total 0.5 mg/dl (0.2-1.0); Calcium 8.1 mg/dl (8.6-10.3); Creatinine Clr Calc Pharmacy 128.9 ml/min; Est GFR (African American) 125.4 ml/min; Est GFR (Non-African American) 108.2 ml/min; Globulin 2.4 gm/dl (2.5-4.0); Total Protein 5.9 gm/dl (6.0-8.3)
--- NOTE | 2023-11-11 09:28 | Discharge Summary ---
Date of Service November 11, 2023 Admission HPI Per Admitting Provider Perico is a 52-year-old male with PMH of esophagectomy, dumping syndrome, depression, and GERD. He presented for sharp, intermittent epigastric pain and right flank pain x 2 weeks. Patient describes the pain as "gnawing", and reports that it radiates to his back. He rates it 10/10 at its worst, 5/10 at present. Patient has not been taking medications at home for the pain, but tried taking Tylenol yesterday after he drove up from his house near [facility], and the pain was exacerbated by vibrations in the car. Patient believes that putting pressure on his back alleviates the pain somewhat. No history of pancreatitis or gallbladder issues. No recent changes in diet. Patient did have a fever/chills a couple nights ago, but this resolved upon waking. History of achalasia recent diagnosis in 2010; however this got worse and required esophagectomy where 95% of the esophagus was moved because it stopped working. Patient took all of his regular morning medications today except for Zoloft; no recent change in medications. Patient denies smoking or tobacco use. He does endorse alcohol use; he drinks [employer] and coke 12 drinks daily. Last drink was last night on 11/07. No history of seizures or alcohol withdrawal. No family history of pancreatitis. No history of abdominal surgeries or surgeries other than his esophagectomy. Patient is hypertensive at 188/119 at time of admission. ED course: NSS 1000 mL IV ROS: Patient endorses fever/chills/nightsweats (2 days ago; resolved), dry cough, sharp epigastric pain radiating to the back, diarrhea (secondary to dumping syn drome) Patient denies dizziness, lightheadedness, headaches, changes in vision, chest pain, left shoulder/jaw pain or pressure, chest palpitations, SOB, pleuritic CP, nausea, vomiting, blood in urine/stool, dysuria, burning with urination, change in urinary/bowel habits, saddle anesthesia, or N/T in the arms or legs. Admission Exam Per Admitting Provider General: Mild physical distress secondary to back pain; pleasant affect; non- toxic appearing; well-nourished; cooperative; SpO2 100% on RA HEENT: normocephalic, atraumatic; no scleral icterus; PERRLA; moist mucus membrane; vision and hearing grossly intact Neck: supple; no lymphadenopathy; trachea midline Skin: warm, dry without signs of tenting; no cyanosis; no rashes, bruising, lesions, or erythema noted CV: chest wall NTP; RRR; S1/S2 normal; no murmurs/rubs/gallops; pulses intact and symmetric at radial, DP, and PT Lungs: no acute respiratory distress; symmetrical chest wall expansion; clear breath sounds across all lung hernandez w/o adventitious sounds; no wheezing ABD: Soft, NTP; BS present; no rebound/guarding; no distention; no rashes, bruising, or signs of active bleeding on the abdomen flanks or back; negative CVA tenderness MSK: no tics or fasciculations; no edema noted in the LEs b/l, nonerythematous Neuro: A&Ox3; normal mood and affect; fluent speech; no focal deficits; sensation grossly intact in the LEs b/l Principal Diagnosis Acute Gallstone Pancreatitis Discharge Exam Constitutional WD/WN, vitals as above Respiratory normal respiratory effort, lungs clear to auscultation Cardiovascular RRR, no murmur, no edema Gastrointestinal (Abdomen) normal bowel sounds, soft, nontender, no hepatosplenomegaly Skin no rashes, warm and dry Discharge Data Allergies Allergy/AdvReac Type Severity Reaction Status Date / Time house dust Allergy Intermediate ITCHY Verified 11/09/23 18:42 EYES, SNEEZING, CONGESTION pollen extracts Allergy Intermediate ITCHY Verified 11/09/23 18:42 EYES, SNEEZING, CONGESTION Consultations 11/09/23 20:15 ED Decision to Admit Stat 11/10/23 14:46 Consult General Surgery Routine Ordered Studies 11/09/23 18:16 CT Abd and Pelvis [CT abd pelvis IV con only] Stat 11/09/23 20:21 MR MRCP Stat Abdomen/Pelvis CT 11/09/23 18:[address] WITH IV CONTRAST CT DOSE: 1190.8 mGy.cm HISTORY: mid abd pain TECHNIQUE: Multiaxial CT images of the abdomen and pelvis were performed following the use of intravenous contrast. A dose lowering technique was utilized adhering to the principles of ALARA. COMPARISON STUDY: None. FINDINGS: There are scattered punctate calcified granulomas in the few linear scarlike densities the right lung base. No pneumoperitoneum. No pneumatosis. No acute fractures. Suture material within the stomach with suggestion of a gastric pull-up. This is only partially imaged on this study. The liver, spleen, adrenal glands, and right kidney are unremarkable. There is a punctate stone within the left kidney. No ureteral stones. No hydronephrosis. The main portal vein is patent. Normal caliber abdominal aorta. There is a left circumaortic renal vein. Mild calcified plaque within the abdominal aorta. No retroperitoneal or pelvic lymphadenopathy. No pelvic free fluid. The bladder is unremarkable. Colonic diverticulosis. No evidence for acute diverticulitis. No dilated loops of bowel to suggest an obstruction. Mild thickening within the duodenum is likely reactive. Normal appendix. Edema within the head and body of the pancreas with peripancreatic fat stranding/fluid. This is consistent with acute pancreatitis. No pancreatic necrosis or loculated peripancreatic fluid collections at this ti me. Normal caliber common bile duct. There are few punctate gallstones. There is minimal pericholecystic edema. This could be reactive. IMPRESSION: 1. Acute pancreatitis as described above. 2. Cholelithiasis. There is mild pericholecystic edema. This could be reactive to the acute pancreatitis. 3. Mild thickening of the duodenum which is also likely reactive to the acute pancreatitis. 4. Left-sided nephrolithiasis. No hydronephrosis. 5. Additional findings as described above. ACT 112: Negative or not required by law. Electronically signed by: Cj Coley M.D. 11/09/2023 7:46 PM Cholangiopancreatography MRI 11/09/23 20:21 Exam(s): MRI MRCP EXAM: MR Abdomen Without Intravenous Contrast, MRCP Protocol CLINICAL HISTORY: Reason for exam: Transaminitis. TECHNIQUE: Multiplanar magnetic resonance images of the abdomen without intravenous contrast using MRCP protocol. COMPARISON: CT examination 11/09/23 FINDINGS: Bile ducts: Unremarkable. No stones. No ductal dilation. Gallbladder: Cholelithiasis and gallbladder sludge demonstrated. Gallbladder is partially contracted. There is no direct evidence for acute cholecystitis. Liver: Unremarkable. Pancreas: Peripancreatic edema again demonstrated, characteristic for acute pancreatitis. No evidence for pancreatic necrosis. No drainable fluid collection is visualized. No ductal dilation. Spleen: Unremarkable. No splenomegaly. Adrenals: Unremarkable. No mass. Kidneys and ureters: Unremarkable. No hydronephrosis. Stomach and bowel: Unremarkable. No obstruction. IMPRESSION: 1. Peripancreatic edema again demonstrated, characteristic for acute pancreatitis. No evidence for pancreatic necrosis. No drainable fluid collection is visualized. 2. Cholelithiasis and gallbladder sludge demonstrated. Gallbladder is partially contracted. There is no direct evidence for acute cholecystitis. 3. No evidence for choledocholithiasis. Electronically signed by: Kojo Walter MD 11/10/23 01:40 AM Chest X-Ray 11/09/23 22:13 XR chest 1V portable HISTORY: Epigastric pain; check for mediastinal widening COMPARISON: None. FINDINGS: No pneumothorax. No pleural effusions. The heart is normal in size. No evidence for mediastinal widening. No acute fractures. Small linear scarlike densities within the right lung. Otherwise, lungs are clear. IMPRESSION: No acute process. ACT 112: Negative or not required by law. Electronically signed by: Cj Coley M.D. 11/10/2023 7:07 AM Hospital Course (1) Alcohol use: (2) Esophageal dysmotility: (3) Depression: (4) H/O esophagectomy: (5) Acute pancreatitis: Plan 52-year-old male with PMH of esophagectomy, dumping syndrome, depression, and GERD admitted due to pancreatitis #Acute pancreatitis: Patient presented to our institution after 2 week of intermittent epigastric/ upper abdominal pain with severe epigastric pain CT abdomen: revealed acute pancreatitis, cholelithiasis, and mild pericholecystic edema (which may be reactive from the acute pancreatitis) On admission: No leukocytosis, Lipase significantly elevated at 7776, Elevated transaminases AST: 109 ALT: 76, ALP: 180 MRCP: Cholelithiasis and gallbladder sludge demonstrated. Gallbladder is partially contracted. There is no direct evidence for acute cholecystitis. No evidence for choledocholithiasis. Negative for choledocholithiasis and t.bili Surgery was consulted : Discussed indication for cholecystectomy based on acute pancreatitis and having gallstones. Discussed with patient that we need to allow pancreatitis to resolve prior to surgical intervention. While admitted patient was treated with IVFs and pain management. He was kept on NPO until pain resolved. Diet was advance as tolerated Day of discharge LFTs: AST: 26, ALT: 37 ALK Phosphates: 116, Lipase: 77 - Would recommended repeat of levels within a week Due to improvement on pain and LFTs and lipase trending down patient is stable to be discharge with close follow up with PCP and Surgery back at his home town for possible outpatient cholecystectomy #Alcohol use: Patient endorses drinking 1-2 drinks of rum and coke daily Last drink on the evening of 11/07 Patient denies history of alcohol withdrawal or alcohol withdrawal seizures # H/O esophagectomy: Hx of achalasia requiring esophagectomy in 2014 with removal of 95% of the esophagus Continue Nexium # Esophageal dysmotility: Stable, no change on management #Depression: Continue sertraline Total Time Total Time Spent Total Time Spent (In Minutes): <30 Discharge Plan Discharge Items Patient Disposition: Home - Self-Care Reason For Visit: SHARP INTERMITTENT EPIGASTRIC PAIN Discharge Diagnosis: Pancreatitits Activity: Per Instructions section Non-emergency contact: Primary Care Provider Call non-emergency contact if: you have any medication questions, your symptoms worsen and your pain is not controlled Follow-up/Referrals: PCP,NO [Primary Care Provider] - Diet: Low Fat Addtl Attending Provider Instructions: You were in the hospital due to pancreatitis. This is an inflammation on your pancreas. This can be secondary to stones on your gallbladder or your alcohol consumption. You were treated with IV fluids as well as pain medications. As discussed with you, you should follow up with your primary care provider as well as a general surgery back at home Follow-up appointments: Make a follow-up appointment with your PCP within the next week. It is very important that you follow up with them shortly after discharge from the hospital. Keep all your follow-up appointments as already scheduled. If you cannot make an appointment, notify your provider. Medications: Your medication list has been reviewed and reconciled upon discharge to ensure accuracy and continuity of care. An updated list of all your medications is included with your hospital discharge paperwork. Please review this list closely, and make note of any changes. Take your medications as instructed; do not skip a dose of your medicines. Make sure all of your doctors know every medicine you are taking (including ov [id number] medicines, vitamins, and supplements). Call your primary care provider before taking any new medicines (including jwkr-[id number]-solsgfh medicines, vitamins, and supplements), because some of these may interact with your current medications, or may make your symptoms worse. Tell your primary care provider if you cannot afford your medications. CALL 911 OR GO TO THE EMERGENCY DEPARTMENT if you experience any of the following: Sudden, severe abdominal pain or nausea/vomiting Severe chest pain, or chest pain that radiates (moves) to your jaw or arm Sudden, severe shortness of breath or difficulty breathing Thank you for allowing us to participate in your care. Pending Studies at Discharge: No Stand-Alone Forms: [facility], Smoking Cessation Medications and DC Order Prescriptions: Continued cetirizine [Zyrtec] 10 mg Tablet 10 mg PO DAILY esomeprazole magnesium [Nexium] 40 mg Capsule,Delayed Release(Dr/Ec) 40 mg PO DAILY sertraline [Zoloft] 50 mg Tablet 75 mg PO DAILY Xeljanz 10 mg Tablet 10 mg PO DAILY T-Hero Suppliment 1 dose PO DAILY Discharge Orders: Discharge Order (Routine); Ordered 11/11/23 Ordered By: Nelson Pickett Admission Data Admit Date/Time: 11/09/23 22:20 Attending Provider: Tiffanie Foley Admit Provider: Anthony Robins Primary Care Provider: PCP,NO Other Providers: Anthony Robins; Indra Guillen Other Interventions: Discharge Summary Assessment (RN) Last Done: 11/11/23 09:32 Supervising Physician Co-Signing Physician Notes Attending Physician Supervision Note: I independently interviewed and examined the patient and verified the mark history and physical, reviewed labs and image studies and agree with findings and care plan noted above. Abd pain resolved. no fever No distress. RRR, CTA, abd - soft NT/ND. BS+ Acute pancreatitis - concern of gall stone pancreatitis. symptoms resolved. lipase normalized. MRCP negative for choledocholithiasis. No ERCP service available. -Surgery consulted but he would like to get further work up and evaluation done in his home town in [place]. -diet advanced. tolerated well. discussed low fat diet until evaluated by surgery locally. -Assumption of scans provided to him on discharge.
--- NOTE | 2023-11-11 14:29 | Surgery Progress Note ---
Date of Service November 11, 2023 Assessment & Plan (1) Acute pancreatitis: (2) Alcohol use: (3) Gallstones: Plan: 52 year-old male with 2 week history of intermittent epigastric/upper abdominal pain with episode of severe epigastric pain which prompted ER visit. Labs and imaging consistent with acute pancreatitis. MRCP negative for choledocholithiasis and t.bili an lfts trending down (slightly elevated initially). Etiology of pancreatitis could be either Alcoholic pancreatitis vs Gallstone pancreatitis. No leukocytosis. Discussed indication for cholecystectomy based on acute pancreatitis and having gallstones. Discussed with patient that we need to allow pancreatitis to resolve prior to surgical intervention. If labs start trending upward he would need transfer for ERCP capabilities. He is from [place] so if pancreatitis improves and he clinically improves could consider outpatient cholecystectomy back at home. Will follow along. Recommend following labs to ensure lfts, and alk phos, and lipase trend to normal. IV fluids, pain management as needed, and clear liquid diet. 11/11/2023: pain resolved no n,v t. bili, lfts and lipase all wnl Plan: Again discussed with patient recommendation for cholecystectomy based on cholelithiasis and development of acute pancreatitis. He is stable and would prefer surgery back at home in [place]. Medicine planning on discharging today. WIll need images and reports sent with patient for his GI team and PCP to review. Discussed with Dr. conde who agrees with above. Admission and Anticipated Discharge Date Admission Date: November 09, 2023 Subjective feeling better having no pain today no n,v tolerating diet Physical Exam Constitutional: WD/WN, vitals as above cooperative and comfortable; no acute distress and not ill appearing Respiratory: normal respiratory effort; no respiratory distress, no labored breathing and no retractions Gastrointestinal (Abdomen): Inspection/Auscultation: abdomen normal to inspection; abdomen not distended Percussion/Palpation: abdomen soft; abdomen nontender, no guarding and abdomen not rigid Skin: no rashes, warm and dry no jaundice Psychiatric: A+Ox3, euthymic affect Results & Data Vital Signs (Past 12 Hours) Vital Signs Temp Pulse Pulse Pulse Resp BP Pulse Ox 11/11/23 09:32 36.8 C 57 L 57 L 75 16 160/107 H 96 11/11/23 07:17 36.8 C 57 L 16 160/107 H 96 O2 Del Method 11/11/23 09:32 11/11/23 07:17 Room Air Laboratory Results 11/11/23 Range/Units 06:44 WBC 5.40 (4.8-10.8) K/ul RBC 5.21 (4.70-6.10) M/uL Hgb 14.3 (14.0-18.0) g/dl Hct 43.5 (42.0-52.0) % MCV 83.5 (80.0-100.0) fL MCH 27.4 (25.0-34.0) pg MCHC 32.9 (32.0-36.0) g/dL RDW Std Deviation 38.5 (36.4-46.3) fL RDW Coeff of Camilo 12.8 (11.5-14.5) % Plt Count 228 (130-400) K/uL MPV 10.5 (9.4-12.4) fL Immature Gran % (Auto) 0.4 % Neut % (Auto) 62.4 % Lymph % (Auto) 24.3 % [place] % (Auto) 5.2 % Eos % (Auto) 7.0 % Baso % (Auto) 0.7 % Neut # (Auto) 3.37 (1.40-6.50) K/uL Lymph # (Auto) 1.31 (1.20-3.40) K/uL [place] # (Auto) 0.28 (0.11-0.59) K/uL Eos # (Auto) 0.38 (0.00-0.50) K/uL Baso # (Auto) 0.04 (0.00-0.20) K/uL Immature Gran # (Auto) 0.02 (0.01-0.20) K/uL Sodium 137 (136-145) mmol/L Potassium 4.0 (3.5-5.1) mmol/L Chloride 107 (98-107) mmol/L Carbon Dioxide 26 (21-32) mmol/L Anion Gap 4 (3-11) BUN 6 (6-23) mg/dl Creatinine 0.73 (0.6-1.4) mg/dl Est Cr Clr Drug Dosing 128.9 ml/min Est GFR ( Amer) 125.4 ml/min Est GFR (Non-Af Amer) 108.2 ml/min BUN/Creatinine Ratio 8.2 L (10-20) Glucose 88 (70-99(Fasting)) mg/dl Calcium 8.1 L (8.6-10.3) mg/dl Total Bilirubin 0.5 (0.2-1.0) mg/dl AST 26 (13-39) U/L ALT 37 (7-52) U/L Alkaline Phosphatase 116 H (34-104) U/L Total Protein 5.9 L (6.0-8.3) gm/dl Albumin 3.5 (3.4-5.0) gm/dl Globulin 2.4 L (2.5-4.0) gm/dl Albumin/Globulin Ratio 1.5 (0.9-2) Lipase 77 (11-82) U/L (1) Acute pancreatitis Acute pancreatitis complication: unspecified Pancreatitis type: unspecified pancreatitis type Qualified Code(s): K85.90 - Acute pancreatitis without necrosis or infection, unspecified
== END 2023-11-11 10:11 | disposition home or self-care (01) ==
LOC: 3N 17:25 → ED 17:25 → SUATTDRO 22:20 → 3N 22:50